=== PATIENT | male | born 1960 | race Caucasian/White ===

== ENCOUNTER 2020-01-27 04:40 | Emergency (ER) | payer BC ==
[2020-01-27] MEDS ORDERED: Ketorolac Tromethamine 30 MG/ML VIAL ONE (05:00)
[2020-01-27 05:27] LABS: Bilirubin Negative (Negative); Blood, Urine 3+ (Negative); Clarity Clear (Clear); Glucose, Urine (Dipstick) Normal (Negative); Ketone, Urine Negative (Negative); Leukocyte Negative Leu/uL (Negative); Nitrite Negative (Negative); Protein, Urine (Dipstick) 10 mg/dL (Neg-Trace); RBC/HPF Greater than 50 HPF (0-3); Specific Gravity, Urine 1.021 (1.002-1.036); Squamous Epithelial None Seen HPF (0-3); Urobilinogen Normal mg/dL (Less than 2)
[2020-01-27 05:28] LABS: Bacteria/HPF 1+ HPF (None Seen)
--- NOTE | 2020-01-27 07:44 | CT ---
PRELIMINARY REPORT/[facility]/EMERGENCY AFTER HOURS PROCEDURE EXAM: CT Abdomen and Pelvis Without Intravenous Contrast CLINICAL HISTORY: PREVIOUS ON PACS.. ER 2...Additional history obtained from EMS, Patient presents from home following a syncopal episode. He reports that he got up to urinate, and after urinating he passed out. His reported that he was unresponsive for several minutes. When EMS arrived, he was awake and alert. Patient reports that he has passed out more than once over the last 48 hours. He complains of pain only in his neck diffusely that has been present off and on for about a month. Patient denies nausea, vomiting, diarrhea, fever, and upper respiratory symptoms. Patient is currently being treated for multiple myeloma with oral chemotherapy TECHNIQUE: Axial computed tomography images of the abdomen and pelvis without intravenous contrast. CONTRAST: None. COMPARISON: March 02, 2014 FINDINGS: LUNG BASES: No basilar airspace consolidation or pleural effusion. LIVER: Innumerable hepatic cysts are identified. GALLBLADDER AND BILE DUCTS: There do appear to be some small stones layering dependently within the gallbladder. No specific CT features of cholecystitis on this noncontrast study. No ductal dilation. PANCREAS: Unremarkable. SPLEEN: Unremarkable. ADRENAL GLANDS: Unremarkable. KIDNEYS, URETERS, AND BLADDER: Moderate hydronephrosis on the left secondary to a 2 mm mid ureteral stone. Punctate intrarenal ston es bilaterally without obstructive changes on the right. Small bladder diverticulum noted. STOMACH AND BOWEL: Evaluation of the GI tract is limited due to lack of contrast and limited distention of the GI tract. No obvious, acute GI abnormalities are identified. Diverticulosis without evidence of diverticulitis. No free fluid, fluid collections, or free air. APPENDIX: Normal appendix. LYMPH NODES: A few nonspecific periaortic lymph nodes are noted. These measure up to about 11 mm. Although nonsp ecific, they are new-more prominent than prior study. Also there are some very prominent external iliac lymph nodes bilaterally measuring up to 2.6 cm long axis on the left and 2.9 cm long axis on th e right. Inguinal regions are unremarkable. VASCULATURE: No aortic aneurysm. ABDOMINAL WALL AND SOFT TISSUES: Unremarkable. BONES: No fracture or suspicious osseous abnormality. IMPRESSION: Mid ureteral stone on the left with hydronephrosis. Adenopathy in the pelvic and periaortic regions will need further investigation with attention to the prostate and testicles. Tiny gallstones. ELECTRONICALLY SIGNED BY: Patricio Lewis MD Jan 27, 2020 6:08:28 AM CDT This report is intended for review by the ordering physician only, in accordance of law. If you recei ve this report in error, please call [facility] at [phone]. FINAL REPORT Exam: Abdomen CT without contrast Pelvic CT without contrast HISTORY: Left lower quadrant pain. COMPARISON: 03/02/2014. FINDINGS: Abdomen CT: Lung bases:Scarring and atelectasis in lung bases. Heart size: Normal heart size. Aorta: Normal caliber. Solid organs: Limited evaluation by the lack of IV contrast. Stable hypodensities in the liver, favor ed. Lymph nodes: No gastrohepatic, retrocrural or periportal lymphadenopathy. There does appear to be per iaortic lymphadenopathy. Gallbladder: Small amount of sludge. No evidence of cholecystitis. Mesentery: No mass, lymphadenopathy, free air or free fluid. Kidneys: Bilateral nonobstructing intrarenal calculi. Hypodensity in the right renal cortex compatibl e with a cyst. No evidence of right-sided obstructive uropathy. There is mild dilatation of left intrarenal and extrarenal collecting system secondary to a 0.5 cm calculus. Alimentary canal: Limited evaluation due to technique. No bowel obstruction. Normal ileocecal junctio n. Normal appendix. Diverticulosis, without evidence of diverticulitis. CT PELVIS: No mass, adenopathy, free air or free fluid. Urinary bladder: Small left-sided bladder diverticulum. No bladder calculi. Osseous structures: No lytic or blastic lesions IMPRESSION: 1. This report is in agreement with initial report by [facility]. 2. Left-sided obstructive uropathy secondary to a left ureteral calculus. Additional bilateral nonobs tructing calculi are noted. 3. Retroperitoneal lymphadenopathy as described above. Transcribed Date/Time: 01/27/2020 8:16 AM
== END 2020-01-27 06:56 | disposition home or self-care (01) ==
LOC: ERS 04:40
DX: N13.2 Hydronephrosis with renal and ureteral calculous obstruction (principal); R59.0 Localized enlarged lymph nodes; J45.909 Unspecified asthma, uncomplicated; Z79.899 Other long term (current) drug therapy; Z87.442 Personal history of urinary calculi
CPT/HCPCS: 74176; 81003; 81015; 96372; J1885

== ENCOUNTER 2020-02-20 08:49 | Outpatient (CLI) | payer BC ==
--- NOTE | 2020-02-20 09:40 | RAD ---
EXAM: Chest PA and lateral: HISTORY: Lymphadenopathy. COMPARISON: 10/26/2018 FINDINGS: Heart: Normal cardiac silhouette Aorta: Unremarkable Pulmonary vessels: Normal Costophrenic angles: Costophrenic angles are clear. Lungs: No consolidation or masses. Pneumothorax: No pneumothorax Osseous structures: Remote left rib fractures. Compression fractures with kyphosis in the mid thoraci c spine at approximately T5 and T6. IMPRESSION: No acute cardiopulmonary process.
== END 2020-02-20 08:50 | disposition home or self-care (01) ==
LOC: BICRAD 08:49
PROVIDERS: ATTEND Family Medicine
DX: N20.0 Calculus of kidney (principal); R59.1 Generalized enlarged lymph nodes
CPT/HCPCS: 71046

== ENCOUNTER 2020-03-19 12:17 | Day surgery (SDC) | payer BC ==
[2020-03-18 11:06] VITALS: BMI 25.8
[2020-03-19] MEDS ORDERED: Sodium Bicarbonate 2.5 MEQ/5 ML VIAL ONE (13:15)
[2020-03-19] MEDS ORDERED: Lidocaine 1% PF 5 ML VIAL ONE (13:15)
[2020-03-19 13:35] VITALS: BP 129/81; TEMP 98.1
--- NOTE | 2020-03-19 13:52 | ULT ---
Ultrasound-guided core biopsy of enlarged lymph nodes in the left axillary region COMPARISON: CT of the chest, abdomen and pelvis dated March 11, 2020. INDICATION: Concern for lymphoma, multiple enlarged lymph nodes within the axilla, retroperitoneum an d obturator regions. TECHNIQUE: Informed consent was obtained. Preprocedure ultrasound demonstrated the enlarged lymph nodes within the left axillary region. Site o verlying the largest lymph node of the left axilla was marked. Site was prepped and draped in usual sterile fashion. Buffered 1% lidocaine was measured overlying subcutaneous tissues. A small dermatoto my was made. 20-gauge [employer] core biopsy device was utilized to gain 5 separate core samples of the enlarged lymph node left axillary region. 2 samples were submitted in CytoLyt solution and 3 samples were submitted in RPMI flow cytometry solution. Post procedure images demonstrated no significant hematoma. Pressure was held at the biopsy site until hemostasis was obtained. Patient tolerated proce dure without difficulty. Impression: Successful ultrasound-guided left axillary lymph node core biopsy. Transcribed Date/Time: 03/19/2020 2:10 PM
== END 2020-03-19 13:45 | disposition home or self-care (01) ==
LOC: ULT 12:17
PROVIDERS: ATTEND Family Medicine
PROC: 07B60ZX Excision of Left Axillary Lymphatic, Open Approach, Diagnostic (ICD-10-PCS; principal; 2020-03-19)
DX: C91.10 Chronic lymphocytic leukemia of B-cell type not having achieved remission (principal); J45.909 Unspecified asthma, uncomplicated; Z88.0 Allergy status to penicillin
CPT/HCPCS: 38505; 88184; 88237; 88307; 88341; 88342

== ENCOUNTER 2022-06-24 03:49 | Emergency (ER) | payer BC ==
[2022-06-24] MEDS ORDERED: Ketorolac Tromethamine 30 MG/ML VIAL ONE (04:09)
[2022-06-24 04:34] LABS: Mean Corpuscular HGB CONC 34.5 g/dL (32.0-36.0); Mean Corpuscular Hemoglobin 33.2 pg (27.0-31.0); Mean Corpuscular Volume 96.5 fl (78.0-98.0); Mean Platelet Volume 7.5 fL (7.4-10.4); Platelet Count 161 10x3/uL (130-400); Red Blood Cell (RBC) Count 4.83 mill/uL (4.70-6.10); White Blood Cell (WBC) Count 12.7 10x3/uL (4.8-10.8)
[2022-06-24 04:56] LABS: Band 1 % (5-11); Eosinophils 1 % (0-10); Lymphocytes 45 % (21-51); MDiff Complete? YES; Monocytes 3 % (0-10); Neutrophil 33 % (42-75); Platelet Morphology Comment Appears Adequate; RBC Morphology Normal; Reactive Lymphocytes 17 % (0-10)
[2022-06-24 04:57] LABS: ALT (SGPT) 24 U/L (8-55); AST (SGOT) 22 U/L (5-34); Albumin 4.4 g/dL (3.5-5.0); Alkaline Phosphatase 74 U/L (40-110); Anion Gap 12 mmol/L (10-20); BUN (Urea Nitrogen) 19 mg/dL (8.4-25.7); Bilirubin, Total 0.8 mg/dL (0.2-1.2); Calc. Creatinine Clearance 0 mL/min (70-130); Calcium 9.2 mg/dL (7.8-10.44); Carbon Dioxide 25 mmol/L (22-29); Chloride 107 mmol/L (98-107); Estimated GFR 99; Globulin 2.6 g/dL (2.4-3.5); Glucose 115 mg/dL (70-105); Lipase 33 U/L (8-78); Potassium 4.1 mmol/L (3.5-5.1); Sodium 140 mmol/L (136-145)
[2022-06-24] MEDS ORDERED: Morphine 4 MG/ML VIAL ONE (04:59)
[2022-06-24 05:10] LABS: Bilirubin Negative (Negative); Blood, Urine Negative (Negative); Clarity Turbid (Clear); Glucose, Urine (Dipstick) Normal (Negative); Ketone, Urine Negative (Negative); Leukocyte 500 Leu/uL (Negative); Nitrite 2+ (Negative); Protein, Urine (Dipstick) Negative (Neg-Trace); RBC/HPF 0-3 HPF (0-3); Specific Gravity, Urine 1.013 (1.002-1.036); Urobilinogen Normal mg/dL (Less than 2); pH, Urine 5.5 (5.0-9.0)
[2022-06-24 05:21] LABS: Bacteria/HPF 3+ HPF (None Seen); Squamous Epithelial 0-3 HPF (0-3)
[2022-06-24] MEDS ORDERED: Iopamidol-370 76% 500 ML 1 ML ONE (12:46)
== END 2022-06-24 07:17 | disposition home or self-care (01) ==
LOC: ERS 03:49
DX: K57.92 Diverticulitis of intestine, part unspecified, without perforation or abscess without bleeding (principal); N39.0 Urinary tract infection, site not specified; D72.829 Elevated white blood cell count, unspecified
CPT/HCPCS: 74177; 80053; 81003; 81015; 83690; 85025; 96374; 96375; J1885; J2270